=== PATIENT | male | born 1955 | race Caucasian/White ===

== ENCOUNTER 2016-04-19 11:01 | Outpatient (CLI) | payer MEDICARE, OTHER ==
[~2016-04-19] VITALS: Ht 182.9 cm; Wt 150.0 kg
--- NOTE | ~2016-04-19 | HEMODYNAMI ---
PATIENT:POPPY ARORA MEDICAL RECORD: [id number] : 57 LOCATION:D.CAT ADMISSION DATE: 04/19/16 Generatedon:04/19/201614:12 Patient name: POPPY ARORA Patient #: [id number] SSN: : 1955 Date of study: 04/19/2016 Page: Of Hemodynamic Procedure Report Patient Data Patient Demographics Procedure consent was obtained First Name: POPPY Gender: Male Last Name: ULYSSES : 1955 [facility] Initial: L Age: 60 year(s) Patient #: [id number] Race: Unknown Additional ID: [id number] Contact details [address]: [address] [place] [address] State: [place] City: [facility] Zip code: [address] Past Medical History Allergies Allergen Reaction Date Comments Reported Other allergy 04/19/2016 lisinopril Admission Admission Data Admission Date: 04/19/2016 Admission Time: 11:01 Admit Source: Other Lab Results Lab Result Date: 04/19/2016 Lab Result Time: 12:05 Biochemistry Name Units Result Min Max Creatinine mg/dl 1 --(--*-)-- 0.6 1.3 CBC Name Units Result Min Max Hematocrit % 41.2 -*(----)-- 42 54 Hemoglobin g/dl 13.8 --(*---)-- 13.5 17.5 Procedure Procedure Types Cath Procedure Diagnostic Procedure LHC Right Heart RHC and LHC w/Coronaries PCI Procedure Coronary Stent Initial Miscellaneous Procedures Moderate Sedation up to 45 minutes Procedure Description Procedure Date Procedure Date: 04/19/2016 Procedure Start Time: 13:23 Procedure End Time: 14:10 Procedure Staff Name Function Tony Palafox MD Performing Physician Sid Millan RT Scrub Pablito Marrufo RN Nurse Adal Sawant RT Appointment Setter Josué Gross RT Monitor Procedure Data Cath Procedure Fluoroscopy Diagnostic fluoroscopy Total fluoroscopy Time: time: 13.7 min 13.7 min Diagnostic fluoroscopy Total fluoroscopy dose: dose: 3217 mGy 3217 mGy Contrast Material Contrast Material Type Amount (ml) Isovue 300 217 Entry Location Entry Primary Successful Side Size Upsize Upsize Entry Closure Da Silva ccessful Closure Location (Fr) 1 (Fr) 2 (Fr) Remarks Device Remarks Femoral Right 5 Fr 6 Fr Exoseal artery Short Femoral Right 7 Fr Manual vein Short Compression Estimated blood loss: 10 ml Diagnostic catheters Device Type Used For End Catheter Placement Cordis 5Fr JL 4.0 Coronary Catheter (MP) Angiography Cordis 5Fr 3DRC Catheter Coronary (MP) Angiography Cordis 5Fr Pigtail LV Angiography Catheter (MP) Hairdressrciences 7Fr Right heart cath [place] Thermodilution reina Procedure Complications No complications Procedure Medications Medication Administration Route Dosage Oxygen NC 3 l/min Lidocaine 2% added to field 20 Heparin Flush Bag added to field 2 bags (1000units/500ml NS) 0.9% NaCl I.V. 100 ml/hr Versed I.V. 1 mg Fentanyl I.V. 50 mcg Versed I.V. 1 mg Fentanyl I.V. 50 mcg Lopressor I.V. 5 mg Versed I.V. 1 mg Fentanyl I.V. 50 mcg Versed I.V. 1 mg Fentanyl I.V. 50 mcg Heparin Bolus I.V. 6000 units Integrilin (Bolus I.V. 11.3 ml 2mg/ml) Versed I.V. 1 mg Plavix P.O. 600 mg Hemodynamics Rest HGB: 13.8 (g/dl) Heart Rate: 72 (bpm) Pressure Samples Time Site Value (mmHg) Purpose Heart Use Rate(bpm) 13:28 AO 146/85(111) Snapshot 81 13:33 LV 157/7,33 Snapshot 79 13:41 PCW 29/35(28) Snapshot 78 13:41 PA 54/31(39) Snapshot 77 13:42 RV 53/14,20 Snapshot 77 13:43 RA 21/23(20) Snapshot 77 Gradients Valve Time Site Site Mean SEP/DFP Peak To Heart Use 1 2 (mmHg) (sec/min) Peak Rate (mmHg) (bpm) Aortic 13:34 LV AO 80 Snapshots Pre Cath Intra NCS Post Cath Vital Signs Time Heart Resp SPO2 etCO2 EN7nxhr NIBP (mmHg) Rhythm Pain Sedatio n Rate (ipm) (%) (mmHg) (mmHg) Status Level (bpm) 13:07:49 83 19 97 0 0 109/82(93) NSR 0 (11) 10(A) , No pain 13:12:46 83 17 97 0 0 136/125(133) NSR 0 () 10(A) , No pain 13:17:45 81 13 95 0 0 Measuring NSR 0 (11) 10(A) , No pain 13:17:56 81 18 95 0 0 170/106(138) NSR 0 () 10(A) , No pain 13:22:16 78 18 96 0 0 175/98(139) NSR 0 () 10(A) , No pain 13:26:36 81 15 93 0 0 156/103(139) NSR 0 () 10(A) , No pain 13:30:52 78 20 95 0 0 154/95(123) NSR 0 () 10(A) , No pain 13:35:08 80 21 93 0 0 164/92(119) NSR 0 () 10(A) , No pain 13:39:26 80 20 94 0 0 153/94(119) NSR 0 () 10(A) , No pain 13:43:42 78 20 94 0 0 156/89(116) NSR 0 () 10(A) , No pain 13:47:58 79 22 94 0 0 149/91(118) NSR 0 () 10(A) , No pain 13:52:12 82 16 95 0 0 156/92(127) NSR 0 (11) 10(A) , No pain 13:56:28 81 17 94 0 0 159/96(127) NSR 0 () 10(A) , No pain 14:00:44 83 23 94 0 0 165/99(119) NSR 0 () 10(A) , No pain 14:05:02 87 18 95 0 0 167/105(132) NSR 0 () 10(A) , No pain 14:09:22 85 16 95 0 0 161/99(119) NSR 0 (11) 10(A) , No pain Medications Time Medication Route Dose Verified Delivered Reason Not es Effectiveness by by 13:04:47 Oxygen NC 3 l/min Tony Kenney used for [facility] 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 100ml/hr Tony Pablito Per physician [facility] Owen Marrufo RN, MD 13:23:05 Versed I.V. 1 mg Tony Buffie for sedation [facility] Owen Marrufo RN, MD 13:23:10 Fentanyl I.V. 50 mcg Tony Buffie for sedation [facility] Owen Marrufo RN, MD 13:26:47 Versed I.V. 1 mg Tony Buffie for sedation [facility] Owen Marrufo RN, MD 13:26:51 Fentanyl I.V. 50 mcg Tony Buffie for sedation [facility] Owen Marrufo RN, MD 13:29:37 Lopressor I.V. 5 mg Tony Palmaie Per physician [facility] Owen Marrufo RN, MD 13:32:41 Versed I.V. 1 mg Tony Buffie for sedation [facility] Owen Marrufo RN, MD 13:32:45 Fentanyl I.V. 50 mcg Tony Buffie for sedation [facility] Owen Marrufo RN, MD 13:43:54 Versed I.V. 1 mg Tony Buffie for sedation [facility] Owen Marrufo RN, MD 13:43:57 Fentanyl I.V. 50 mcg Tony Buffie for sedation [facility] Owen Marrufo RN, MD 13:47:11 Heparin Bolus I.V. 6,000 Tony Buffie for yamini ified units [facility] Owen Marrufo RN anticoagulation with dr MD mccann 13:49:22 Integrilin I.V. 11.3 ml Tony Palmaie for (Bolus 2mg/ml) [facility] Owen Marrufo RN antiplatelet therapy 13:55:51 Versed I.V. 1 mg Tony Buffie for sedation [facility] Owen Marrufo RN, MD 14:10:50 Plavix P.O. 600 [address] [facility] Owen Marrufo RN antiplatelet therapy Procedure Log Time Note 12:44:59 Informed consent obtained and on chart 12:45:24 Admit Source: Other 12:45:28 Adal Sawant RT(R) sent for patient. Start room use. 12:45:30 Time tracking: Regular hours 12:45:34 Plan of Care:Hemodynamics will remain stable., Cardiac rhythm will remain stable., Comfort level will be maintained., Respiratory function will remain adequate., Patient/ family verbilizes understanding of procedure., Procedure tolerated without complication., Recovers from procedure without complications.. 12:58:28 Patient received from Pre/Post Procedure Room to CCL 1 Alert and oriented. Tansferred to table in Supine position. 12:58:29 Warm blankets applied, and nila hugger turned on for patient comfort. 12:58:29 Correct patient and procedure confirmed by team. 12:58:30 ECG and BP/O2 sat monitors applied to patient. 13:04:47 Oxygen 3 l/min NC was given by Pablito Marrufo RN; used for procedure; 13:06:31 Vital chart was started 13:08:32 Baseline sample Acquired. 13:11:35 Rhythm: sinus rhythm 13:11:40 Full Disclosure recording started 13:12:08 H&P Date Dictated: 04/14/2016 Within 30 days and on chart., H&P Addendum completed by physician on day of procedure. (MUST COMPLETE FOR ALL OUTPATIENTS). 13:12:09 Pre-procedure instructions explained to patient. 13:12:10 Pre-op teaching completed and patient verbalized understanding. 13:12:11 Family in waiting room. 13:12:13 Patient NPO since Midnight. 13:12:23 Patient allergic to Other allergylisinopril 13:12:25 Is the patient allergic to Iodine/contrast media? No. 13:12:28 Is patient on blood thinner?No 13:12:30 Patient diabetic? Yes. 13:12:58 If diabetic: On Metformin? No 13:13:00 Previous problem with sedation/anesthesia? No ? 13:13:01 Snore? Yes 13:13:02 Sleep apnea? No 13:13:03 Deviated septum? No 13:13:04 Opens mouth fully? Yes 13:13:04 Sticks out tongue? Yes 13:13:06 Airway obstruction? No ? 13:13:08 Dentures? No ? 13:13:10 Pre procedure: right dorsailis pedis pulse 2+ Normal; easily identifiable; not easily obliterated 13:13:13 Patient pain scale 0/10 ?. 13:13:23 IV patent on arrival in left hand with 0.9% NaCl at [facility]. 13:14:08 Lab Result : Creatinine 1 mg/dl 13:14:08 Lab Result : Hemoglobin 13.8 g/dl 13:14:08 Lab Result : Hematocrit 41.2 % 13:14:12 Lab results completed and on chart. 13:17:10 Lidocaine 2% 20ml vial added to field was given by Tony Palafox MD; for local anesthetic; 13:17:15 Heparin Flush Bag (1000units/500ml NS) 2 bags added to field was given by Tony Palafox MD; used for procedure; 13:17:29 Zero performed for pressure channel P1 13:17:36 0.9% NaCl 100ml/hr I.V. was given by Pablito Marrufo RN; Per physician; 13:18:56 Right groin area was prepped with chlora-prep and draped in sterile fashion 13:18:58 Alarms reviewed by R. N. 13:18:58 Sharps counted by scrub and verified by R.N. 13:19:00 --------ALL STOP TIME OUT------ 13:19:00 Final Timeout: patient, procedure, and site verified with staff and physician. All members of the team are in agreement. 13:19:03 Right groin site verified by team. 13:19:30 Physical assessment completed. ASA score P 3 - A patient with severe systemic disease as per Tony Palafox MD. 13:19:35 Sedation plan: IV Moderate Sedation Versed, Fentanyl 13:21:20 Use device set Femoral Dx 13:21:22 Tegaderm 4 x 4 opened to sterile field. 13:21:23 Acist Hand Control opened to sterile field. 13:21:23 Acist Manifold opened to sterile field. 13:21:25 Acist Syringe opened to sterile field. 13:21:25 Bag Decanter opened to sterile field. 13:21:26 Medline Cath Pack opened to sterile field. 13:21:26 Terumo 5Fr [place] Sheath opened to sterile field. 13:21:27 St Jh 260cm J .035 wire opened to sterile field. 13:21:28 Diagnostic Infinity 5Fr Multipack catheter opened to sterile field. 13:21:43 Terumo 7Fr [place] Sheath opened to sterile field. 13:23:05 Versed 1 mg I.V. was given by Pablito Marrufo RN; for sedation; 13:23:10 Fentanyl 50 mcg I.V. was given by Pablito Marrufo RN; for sedation; 13:23:48 Procedure started. 13:23:52 Local anesthetic to right femoral artery with Lidocaine 2% by Tony Palafox MD.INITIAL ACCESS ONLY 13:26:10 A 5 Fr sheath was inserted into the Right Femoral artery 13:26:20 A 7 Fr Short sheath was inserted into the Right Femoral vein 13:26:30 A Cordis 5Fr JL 4.0 Catheter (MP) was advanced over the wire and used for Coronary Angiography. 13:26:47 Versed 1 mg I.V. was given by Pablito Marrufo RN; for sedation; 13::51 Fentanyl 50 mcg I.V. was given by Pablito Marrufo RN; for sedation; 13::48 LCA angiography performed. 13:29:37 Lopressor 5 mg I.V. was given by Pablito Marrufo RN; Per physician; 13:29:52 Catheter removed. 13:30:06 A Cordis 5Fr 3DRC Catheter (MP) was advanced over the wire and used for Coronary Angiography. 13:31:19 RCA angiography performed. 13:31:25 ACCDominant side:Left 13:32:41 Versed 1 mg I.V. was given by Pablito Marrufo RN; for sedation; 13:32:45 Fentanyl 50 mcg I.V. was given by Pablito Marrufo RN; for sedation; 13:33:02 Catheter removed. 13:33:21 A Cordis 5Fr Pigtail Catheter (MP) was advanced over the wire and used for LV Angiography. 13:34:37 LV angiography performed. 13:34:39 LV gram done using [place] 13:34:50 EF : 25 % 13:35:01 Injector settings: Ml/sec: 10, Volume: 20, 13:35:58 Catheter removed. 13:36:52 Medtronic Launcher 6Fr HS I guide catheter opened to sterile field. 13:37:12 Terumo 6Fr [place] Sheath opened to sterile field. 13:37:20 Woodson Whisper J 300cm 0.014 guide wire opened to sterile field. 13:37:21 [employer] BasixCompak Inflation Kit opened to sterile field. 13:37:36 A Inhabi 7Fr [place] Thermodilution reina was advanced over the wire and used for Right heart cath. 13:39:27 St Jh 150cm J .025 wire opened to sterile field. 13:43:54 Versed 1 mg I.V. was given by Pablito Marrufo RN; for sedation; 13:43:57 Fentanyl 50 mcg I.V. was given by Pablito Marrufo RN; for sedation; 13:44:22 Right heart pressures measured. 13:44:23 Catheter removed. 13:44:40 Sheath upsized to a 6 Fr Short. 13:44:55 6 Fr HS I guide catheter was inserted over the wire 13:46:19 Guide Catheter removed. pressure damping. 13:46:31 Medtronic Launcher 6Fr HS I SH guide catheter opened to sterile field. 13:47:11 Heparin Bolus 6,000 units I.V. was given by Pablito Marrufo RN; for anticoagulation; verified with dr mccann 13:47:14 6 Fr HS I SH guide catheter was inserted over the wire 13:47:40 whisper wire advanced. 13:49:06 Wire advanced across lesion. 13:49:22 Integrilin (Bolus 2mg/ml) 11.3 ml I.V. was given by Pablito Marrufo RN; for antiplatelet therapy; 13:51:57 Inflation number: 1 A [place] Heverest.ru [place] 3.0 X 20 balloon was prepped and advanced across the Dist RCA, then inflated to 10 SHAILA for 0:30 (min:sec). 13:53:38 multiple inflations made at 10 atms. 13:55:27 Balloon removed over the wire. 13:55:51 Versed 1 mg I.V. was given by Pablito Marrufo RN; for sedation; 13:57:05 Inflation Number: 2 A Medtronic Resolute 3.0 X 26 stent was prepped and advanced across the Dist RCA. The stent was deployed at 12 SHAILA for 0:45 (min:sec). 13:57:53 ACC PCI Site: dRCA has 80% stenosis. 13:57:56 ACC Pre-intervention RICARDO Flow is 3. 13:57:58 ACC Post-intervention RICARDO Flow is 3. 13:58:08 Stent catheter was removed intact over wire. 14:02:09 Inflation Number: 3 A Medtronic Resolute 3.0 X 18 stent was prepped and advanced across the Dist RCA. The stent was deployed at 12 SHAILA for 0:45 (min:sec). 14:03:22 Inflation number: 4 The stent balloon was then re-inflated across the Dist RCA to 12 SHAILA for 0:45 (min:sec). 14:05:26 Inflation number: 5 The stent balloon was then re-inflated across the Dist RCA to 12 SHAILA for 0:45 (min:sec). 14:05:28 Stent catheter was removed intact over wire. 14:05:29 Wire removed. 14:05:30 Guide catheter removed. 14:05:37 Cordis 6Fr Exoseal opened to sterile field. 14:06:04 Sheath removed intact; hemostasis achieved with Exoseal to the Right Femoral artery. 14:06:09 Sheath removed intact; hemostasis achieved with Manual Compression to the Right Femoral vein. 14:06:11 Procedure ended.(Physican Out) 14:06:37 Fluoroscopy time 13.70 minutes. 14:06:42 Fluoroscopy dose: 3217 mGy 14:06:42 Flurop Dose total: 3217 14:06:48 Contrast amount:Isovue 300 217ml. 14:06:49 Sharps counted by scrub and verified by R.N. 14:06:51 Insertion/operative site no bleeding no hematoma. 14:06:58 Post-op/insertion site Right Femoral artery dressed using a 4 x 4 and Tegaderm. 14:07:03 Post-op/insertion site Right Femoral vein dressed using a 4 x 4 and Tegaderm. 14:07:08 Post right femoral artery:stable, soft, clean and dry 14:07:33 Post right femoral vein:stable, soft, clean and dry 14:07:40 Post Procedure Pulses reassessed and unchanged 14:07:43 Post-procedure physical assessment completed. ASA score P 2 - A patient with mild systemic disease as per Tony Palafox MD. 14:07:45 Post procedure rhythm: unchanged. 14:07:49 Estimated blood loss: 10 ml 14:07:51 Post procedure instruction explained to patient.Patient verbalizes understanding. 14:07:51 Patient needs reinforcement of post procedure teaching. 14:08:05 Procedure type changed to Cath procedure, Diagnostic procedure, LHC, Right Heart, RHC and LHC w/Coronaries, PCI procedure, Coronary Stent Initial, Miscellaneous Procedures, Moderate Sedation up to 45 minutes 14:10:10 Procedure and supply charges have been captured, reviewed, submitted and are correct. 14:10:12 Procedure Complication : No complications 14:10:15 Vital chart was stopped 14:10:15 See physician's report for complete and final results. 14:10:17 Report given to Pre/Post Procedure Room. 14:10:19 Patient transfered to Pre/Post Procedure Room with Stretcher. 14:10:22 Procedure ended. 14:10:22 Full Disclosure recording stopped 14:10:42 ACC-PCI Only Patient was given prescriptions, or instructed by Tony Palafox MD to start/continue the following medications upon discharge: Plavix 14:10:50 Plavix 600 mg P.O. was given by Pablito Marrufo RN; for antiplatelet therapy; 14:12:08 End room use (Document Last) Intervention Summary Intervention Notes Time ActionType Lesion and Equipment Action# Pressure Duration Attributes Used 13:51:57 Inflate Dist RCA [place] 1 10 00:30 balloon Sci [place] 3.0 X 20 balloon 13:57:05 Place stent Dist RCA Medtronic 2 12 00:45 Resolute 3.0 X 26 stent 14:02:09 Place stent Dist RCA Medtronic 3 12 00:45 Resolute 3.0 X 18 stent 14:03:22 Reinflate Dist RCA Medtronic 4 12 00:45 stent Resolute balloon 3.0 X 18 stent 14:05:26 Reinflate Dist RCA Medtronic 5 12 00:45 stent Resolute balloon 3.0 X 18 stent Device Usage Item Name Manufacture Quantity Catalog Number Hospital Part Current M inimal Lot# / Charge Number Stock Stock Serial# Code Tegaderm 4 x 4 3M 1 [id number] 056482 625435 5 Acist Hand Acist 1 54017 582938 480717 379142 5 Control Medical Systems Inc Acist Manifold Acist 1 88804 201779 388403 574155 5 Medical Systems Inc Acist Syringe Acist 1 36148 672242 106435 643601 2 0 Medical Systems Inc Bag Decanter Microtek 1 2002S 336736 39772 756748 5 Medical Inc. Medline Cath Cardinal 1 [id number] 037471 32005 068812 5 Pack Health Terumo 5Fr Terumo 1 [id number] 982244 101454 911548 [address] Jh [address] Jh 1 231919 251508 405533 742429 3 0 J .035 wire Diagnostic Cardinal 1 [id number] 215241 63219 657114 3 0 Infinity 5Fr Health Multipack catheter Terumo 7Fr Terumo 1 END264 163954 337907 242576 5 [place] Sheath Cordis 5Fr JL Cardinal 1 788899 5 4.0 Catheter Health (MP) Cordis 5Fr Cardinal 1 547063 5 3DRC Catheter Health (MP) Cordis 5Fr Cardinal 1 275724 5 Pigtail Health Catheter (MP) Medtronic Medtronic 1 [id number] 235190 06355 895076 1 Launcher 6Fr HS I guide catheter Terumo 6Fr Terumo 1 [id number] 960035 755433 152047 4 0 [place] Sheath Woodson Whisper Woodson 1 [id number] 155266 924380 526136 5 J 300cm 0.014 Vascular guide wire Merit Merit 1 [id number] 047647 954870 816961 1 5 PackLate.com Medical Inflation Kit Herrera Herrera 1 [id number] 459427 28924 772297 3 LifesciRoundbox Lifesciences 7Fr [place] Thermodilution reina St Jh 150cm St Jh 1 708579 541333 696026 464619 2 J .025 wire Medtronic Medtronic 1 [id number] 605292 81310 625541 1 Launcher 6Fr HS I SH guide catheter [place] Sci [place] 1 [id number] 099815 670567 058652 1 [id number] [place] 3.0 X Scientific 20 balloon Medtronic Medtronic 1 [id number] 767522 276358 8 [id number] Resolute 3.0 X 26 stent Medtronic Medtronic 1 [id number] 219458 744448 7 [id number] Resolute 3.0 X 18 stent Cordis 6Fr Cardinal 1 [id number] 257175 704168 481256 1 0 [facility] happin! Signature Audit Wallace Stage Time Signature Unsigned Intra-Procedure 04/19/2016 Josué Gross 2:12:50 PM RT(R) Signatures Monitor : Josué Gross RT Signature : Date : Time : [place] [address] [place] [address]
[2016-04-19] MEDS ORDERED: FLOMAX0.4 MG PO (12:10)
[2016-04-19 12:11] LABS: BASOPHILS 0.4 % (0.0-2.0); EOSINOPHILS 5.8 % (0-7); HEMATOCRIT 41.2 % (42.0-54.0); HEMOGLOBIN 13.8 g/dL (13.5-17.5); IMMATURE GRANULOCYTES 0.1 % (0-5); LYMPHOCYTES 21.7 % (15-50); MCH 28.7 pg (26.0-34.0); MCHC 33.5 g/dL (31.0-37.0); MCV 85.7 fL (80.0-100.0); MEAN PLATELET VOLUME 9.2 fL (7.4-10.4); MONOCYTES 11.3 % (2-11); NEUTROPHILS 60.7 % (40-80); PLATELET COUNT 225 10x3/uL (130-400); RBC 4.81 10x6/uL (4.20-6.10); WBC 7.6 10x3/uL (4.8-10.8)
[2016-04-19] MEDS ORDERED: ATIVAN2 MG PO (12:11)
[2016-04-19] MEDS ORDERED: NORVASC10 MG PO (12:12)
[2016-04-19] MEDS ORDERED: ELAVIL25 MG PO (12:12)
[2016-04-19] MEDS ORDERED: COZAAR100 MG PO (12:13)
[2016-04-19] MEDS ORDERED: COREG25 MG PO (12:14)
[2016-04-19] MEDS ORDERED: CYMBALTA60 MG PO (12:14)
[2016-04-19] MEDS ORDERED: IBUPROFEN800 MG PO (12:15)
[2016-04-19] MEDS ORDERED: TRULICITY1.5 MG/0.5 SC (12:16)
[2016-04-19] MEDS ORDERED: NOVOLOG100 U/M1 SC (12:17)
[2016-04-19] MEDS ORDERED: TOUJEO SOL300 UNIT/1 SC (12:18)
[2016-04-19 12:27] VITALS: BP 158/84; Ht 182.9 cm; Wt 150.0 kg
[2016-04-19 12:28] LABS: CALC OSMOLALITY 275 mosm/kg (275-300); CARBON DIOXIDE 29.2 mmol/L (21.0-32.0); CHLORIDE - SERUM 100 mmol/L (98-107); GLUCOSE 124 mg/dL (74-106); POTASSIUM - SERUM 4.1 mmol/L (3.5-5.1); SODIUM 137 mmol/L (136-145); UREA NITROGEN 16 mg/dL (7-18); eGFR NON AFRICAN AMERICAN 81 mL/min (90-120)
[2016-04-19] MEDS ORDERED: PLAVIX75 MG PO (14:46)
[2016-04-19] MEDS ORDERED: ALDACTONE25 MG PO (14:46)
--- NOTE | 2016-04-19 15:49 | NUR ---
1445-RIGHT GROIN- CDI, SOFT TO TOUCH
--- NOTE | 2016-04-19 15:51 | NUR ---
1515-RIGHT GROIN- NO CHANGES, AT SIDE, REPOSITION LEFT LEG FOR COMFORT.
--- NOTE | 2016-04-26 13:35 | OP ---
PATIENT NAME: POPPY ARORA MEDICAL RECORD: [id number] :57 LOCATION:D.CAT ADMISSION DATE: SURGEON: HILTON PERALTA MD DATE OF OPERATION: 04/19/2016 PROCEDURE: Left heart catheterization as well as right heart catheterization, right femoral artery and vein approach respectively. CATHETERS: A 5-Comoran sheath, 5/4 left and right Ruth, 6-[place]oran sheath on the right heart catheterization as well as a Commerce-Fabio. The procedure was tolerated and proceeded with PTCA of the right coronary. FINDINGS: RIGHT HEART CATHETERIZATION: Pulmonary capillary wedge pressure 31 mmHg. Pulmonary artery pressure is 54/31. RV pressure 53/14, right atrial pressure 18. LEFT HEART CATHETERIZATION: Left ventriculography in the 30-degree PHOENIX view shows severe global hypokinesis, more marked apical hypokinesis, EF reduced 20% to 25%. CORONARY ANATOMY: Left main: Left main is free of disease. LAD: Totally occluded in its distal third and is seen filling via right to left collaterals. CIRCUMFLEX: Codominant system free of disease. RIGHT CORONARY ARTERY: Has diffuse diabetic disease and has mid portion and fills the LAD via right to left collaterals. PLAN: Intervention of the right momentarily. A 5-Comoran sheath changed for a 6-[place]or[place] sheath. A hockey stick guide catheter with side holes provided excellent guide catheter support followed by a 300 cm [place] XT wire placed to this portion of the right coronary. Next, pre-deployment of the balloon was a 3.0 x 20 mm [place] balloon. Stents were placed in the following fashion: Distally, a 26-mm x 3.0 Resolute drug-eluting stent was placed. More proximally, an 18 mm Resolute drug-eluting stent was placed. The final angiography shows excellent resolution of diffuse 80% to 90% stenosis, no significant residual. Good plumping of this vasculature. RICARDO flow was 3 throughout the procedure. Plavix was loaded in the lab. Sheath was closed with ExoSeal device. TRANSINT:[id number] Voice Confirmation ID: [id number] DOCUMENT ID: [id number] OPERATIVE REPORT [id number] POPPY ARORA HILTON PERALTA MD at 1337 CC: [id number] DICTATION DATE: 04/19/16 1414 PAINT PREP TECHNICIAN: 04/19/161922 DEP CLI 04/19/16 [facility] [address] [place] [address]
== END 2016-04-19 18:30 | disposition home or self-care (01) ==
LOC: D.CATH 11:01
PROVIDERS: Internal Medicine Interventional Cardiology
DX: I25.119 Atherosclerotic heart disease of native coronary artery with unspecified angina pectoris (principal); E11.9 Type 2 diabetes mellitus without complications
CPT/HCPCS: 93460; C9600

== ENCOUNTER 2017-05-20 10:26 | Emergency (ER) | payer MEDICARE, OTHER ==
[2016-04-19 12:27] VITALS: BMI 44.8
[~2017-05-20 10:26] MED LIST: ALDACTONE25 MG PO; ATIVAN2 MG PO; COREG25 MG PO; COZAAR100 MG PO; CYMBALTA60 MG PO; ELAVIL25 MG PO; FLOMAX0.4 MG PO; IBUPROFEN800 MG PO; NORVASC10 MG PO; NOVOLOG100 U/M1 SC; PLAVIX75 MG PO; TOUJEO SOL300 UNIT/1 SC; TRULICITY1.5 MG/0.5 SC
== END 2017-05-20 15:37 | disposition home or self-care (01) ==
LOC: D.ER 10:26
DX: K59.00 Constipation, unspecified (principal); K56.41 Fecal impaction; E11.9 Type 2 diabetes mellitus without complications; Z79.4 Long term (current) use of insulin; I10 Essential (primary) hypertension

== ENCOUNTER 2018-05-05 12:28 | Observation (INO) | payer MEDICARE, OTHER ==
[2018-05-05] VITALS (8 sets, daily range): BP systolic 104–136; BP diastolic 53–63; BMI 41.7
[~2018-05-05] VITALS: Ht 182.9 cm; Wt 137.7 kg
--- NOTE | ~2018-05-05 | CN ---
PATIENT NAME:POPPY ARORA MEDICAL RECORD: [id number] : 57 LOCATION:[facility] D.2111 ADMIT DATE: 05/05/18 ACCOUNT: [id number] CONSULTING PHYSICIAN: HILTON PERALTA MD REFERRING PHYSICIAN: MARISA BANEGAS MD DATE OF CONSULTATION: 05/06/2018 HISTORY OF PRESENT ILLNESS: A 62-year-old gentleman with known history of coronary artery disease, status post intervention of the right coronary artery. He has a history of cardiomyopathy, improved markedly post-revascularization. He was admitted with chest tightness, pressure with exertion over the last 3-4 weeks, has been having some visual changes and dizziness. This questionable amaurosis type symptomatology, does have severe peripheral vascular disease. We are asked to see him concerning his cardiovascular status. PAST MEDICAL HISTORY: Includes: 1. History of hypertension. 2. Diabetes mellitus. 3. Peripheral vascular disease. 4. Coronary artery disease, status post intervention. ALLERGIES: LISINOPRIL CAUSES AN ALLISON COUGH. MEDICATIONS: Typically include Plavix 75 every day, carvedilol 25 b.i.d., losartan 100 every day, spironolactone 25 every day, amitriptyline 25 q.h.s., aspirin 81 every day, insulin per scale. SOCIAL HISTORY: Nonsmoker, nondrinker. Does try to exercise on a regular basis, although surgery to non-healing ulcers, has not been able do this recently. REVIEW OF SYSTEMS: The patient reports easy bruising but reports no swollen glands. The patient reports no fever, no night sweats, no significant weight gain, no significant weight loss. No significant exercise tolerance. The patient reports no dry eyes, no irritation, no vision change. Patient reports no difficulty hearing and no ear pain. Patient reports no frequent nose bleeds or nose and sinus problems. Patient reports on arm pain on exertion. No shortness of breath while lying down. No history of heart murmur. Patient reports no cough, no wheezing or coughing up blood. Patient reports no abdominal pain, no vomiting. Normal appetite. No diarrhea and not vomiting blood. No nausea and no constipation. Patient reports no incontinence. No difficulty urinating. No hematuria. No increased frequency. Patient reports no muscle aches. No weakness, no arthralgias, no back pain. No swelling of the extremities. Patient reports no abnormal mole, no jaundice, no rashes. Reports no loss of consciousness. No weakness and no numbness. No seizures, dizziness, or headaches. The patient reports no depression, no sleep disturbance, feeling safe in a relationship and no alcohol abuse. Patient reports on fatigue. Reports no runny nose or sinus pressure. No itching, no hives, and no frequent sneezing. PHYSICAL EXAMINATION: GENERAL: Pleasant gentleman in no acute distress. VITAL SIGNS: Blood pressure 138/51, pulse 65 and regular. HEENT: Normocephalic, atraumatic. NECK: Questionable right carotid bruit. CONSULT REPORT [id number] POPPY ARORA HEART: Regular, II/ systolic ejection murmur. LUNGS: Good air excursion. ABDOMEN: Soft, nontender. EXTREMITIES: Pulses 2+. No edema. NEUROLOGIC: Grossly intact. DIAGNOSTIC DATA: ECG shows nonspecific ST-T changes. IMPRESSION: Progressive angina, TIA type symptomatology with bruit noted. PLAN: Diagnostic angiography, 4-vessel in the same setting, intervention based on the above. TRANSINT:[id number] Voice Confirmation ID: [id number] DOCUMENT ID: [id number] HILTON PERALTA MD CC: [id number] DICTATION DATE: 05/06/18 1107 MAKE UP ARTIST: 05/06/18 1223 ADM IN [facility] [address] [place] [address]
--- NOTE | ~2018-05-05 | OP ---
PATIENT NAME: POPPY ARORA MEDICAL RECORD: [id number] :57 LOCATION:D.M2 D.2111 ADMISSION DATE:05/05/18 SURGEON: HILTON PERALTA MD DATE OF OPERATION: 05/06/2018 PROCEDURE: Cath plus PTCA plus 4-vessel arteriography, right femoral artery approach. CATHETERS: A 5-Singaporean sheath, 5/4 left and right Ruth, 5/4 pig. The procedure was well tolerated. The patient returned to smith, sheath removed and ExoSeal device placed. FINDINGS: Left ventriculography in 30-degree [place] view shows mild anterior apical hypokinesis, LV function probably lower limits of normal at 50%. CORONARY ANATOMY: LEFT MAIN: Left main is free of disease. LAD: Totally occluded in its distal third. This is an old occlusion, seen filling via both left to left and left to right collaterals. CIRCUMFLEX: Codominant system. Circumflex is free of disease. RIGHT CORONARY ARTERY: Proximal to previously placed stent shows diffuse 80% stenosis. PLAN: Intervention momentarily. DESCRIPTION OF PROCEDURE: A 5-Singaporean sheath was exchanged for a 6-Singaporean sheath. A hockey stick two-guide catheter with side holes provided good guide catheter support followed by 300 cm Whisper wire, which was placed across the tightly occluded right coronary artery in this portion of vessel. Stent deployed was a 3.0 x 24 mm Smoot drug-eluting stent up to 14 atmospheres for 45 seconds. Final angiography showed excellent resolution of diffuse 80% stenosis, no significant residual. FOUR-VESSEL ARTERIOGRAPHY: Right common carotid was selectively engaged. Right common carotid shows some mild disease, but no flow obstructive stenosis. Nothing greater than 10%. Right internal carotid is a smooth-walled vessel, free of disease. Right external carotid is a smooth-walled vessel, free of disease. Left carotid system: Left common carotid was selectively engaged. This shows some calcium deposition and luminal wall disease, but nothing flow obstructive. Left internal carotid is smooth-walled, free of disease. Left external carotid is smooth-walled vessel, free of disease. IMPRESSION: No significant carotid artery disease, status post PTCA stenting of the right coronary. TRANSINT:[id number] Voice Confirmation ID: [id number] DOCUMENT ID: [id number] OPERATIVE REPORT [id number] POPPY ARORA HILTON PERALTA MD CC: [id number] DICTATION DATE: 05/06/18 1104 EXECUTIVE DIRECTOR OF MARKETING: 05/06/18 1213 ADM IN [facility] [address] [place] [address]
--- NOTE | ~2018-05-05 | HEMODYNAMI ---
PATIENT:POPPY ARORA MEDICAL RECORD: [id number] : 57 LOCATION:[facility] D.2111 ADMISSION DATE: 05/05/18 Generatedon:05/06/201811:00 Patient name: POPPY ARORA Patient #: [id number] SSN: : 1955 Date of study: 05/06/2018 Page: Of Hemodynamic Procedure Report Patient Data Patient Demographics Procedure consent was obtained First Name: POPPY Gender: Male Last Name: ULYSSES : 1955 [facility] Initial: L Age: 62 year(s) Patient #: [id number] Race: Unknown Additional ID: [id number] Contact details Address: [address] [place] [address] State: [place] City: [facility] Zip code: [address] Past Medical History Allergies Allergen Reaction Date Comments Reported Other allergy 04/19/2016 lisinopril Other allergy 05/06/2018 Lisinopril Admission Admission Data Admission Date: 05/05/2018 Admission Time: 16:04 Room #: D.2111 Lab Results Lab Result Date: 05/06/2018 Lab Result Time: 0:00 Biochemistry Name Units Result Min Max BUN mg/dl 47 --(----)-* 7 18 Creatinine mg/dl 1.4 --(----)*- 0.6 1.3 CBC Name Units Result Min Max Hemoglobin g/dl 11.4 *-(----)-- 13.5 17.5 Procedure Procedure Types Cath Procedure Diagnostic Procedure [facility] w/Coronaries PCI Procedure Coronary Stent Coronary Stent Initial Procedure Description Procedure Date Procedure Date: 05/06/2018 Procedure Start Time: 10:33 Procedure End Time: 10:56 Procedure Staff Name Function Tony Emery MD Performing Physician Marcia Castaneda RT Monitor Pablo Cagle RN Nurse Inna Lopez RT Scrub Duran Kumar RN Plate Embosser Procedure Data Cath Procedure Entry Location Entry Primary Successful Side Size Upsize Upsize Entry Closure Succes sful Closure Location (Fr) 1 (Fr) 2 (Fr) Remarks Device Remarks Femoral Right 5 Fr 6 Fr Exoseal artery Short Estimated blood loss: 10 ml Diagnostic catheters Device Type Used For End Catheter Placement MULTIPACK JL 4.0 5Fr Procedure catheter MULTIPACK 3DRC 5Fr Procedure catheter MULTIPACK Pigtail 5 Fr Ventriculography catheter Procedure Complications No complications Procedure Medications Medication Administration Route Dosage 0.9% NaCl I.V. 100 ml/hr Oxygen etCO2 Nasal cannula 2 l/min Heparin Flush Bag added to field 2 bags (1000units/500ml NS) Lidocaine 2% added to field 20 Versed I.V. 2 mg Fentanyl I.V. Versed I.V. 2 mg Heparin Bolus I.V. 5000 units Hemodynamics Rest HGB: 11.4 (g/dl) Heart Rate: 69 (bpm) Pressure Samples Time Site Value (mmHg) Purpose Heart Use Rate(bpm) 10:41 LV 128/17,19 Snapshot 78 10:42 AO 134/73(100) Pullback 71 10:42 LV 135/18,25 Pullback 71 Gradients Valve Time Site 1 Site 2 Mean SEP/DFP Peak To Heart Use (mmHg) (sec/min) Peak Rate (mmHg) (bpm) Aortic 10:42 LV AO 2 10 1 71 135/18,25 134/73(100) Calculations Valve P-P Mean Valve Index Valve Source Name Gradient Area Flow (cm2) Aortic 1 2 1 2 Snapshots Pre Cath Intra NCS Post Cath Vital Signs Time Heart Resp SPO2 etCO2 NIBP (mmHg) Rhythm Pain Sedation Rate (ipm) (%) (mmHg) Status Level (bpm) 10:10:05 68 14 100 0 143/82(123) NSR 0 (11) 10(A) , No pain 10:14:23 68 18 100 0 142/81(128) NSR 0 (11) 10(A) , No pain 10:18:41 75 18 99 0 140/79(120) NSR 0 (11) 10(A) , No pain 10:22:59 80 22 100 0 152/80(134) NSR 0 (11) 10(A) , No pain 10:27:17 73 11 100 0 140/77(123) NSR 0 (11) 10(A) , No pain 10:31:33 82 18 100 0 141/81(108) NSR 0 (11) 10(A) , No pain 10:35:53 77 19 97 0 128/76(102) NSR 0 (11) 10(A) , No pain 10:40:07 78 18 95 0 137/79(100) NSR 0 (11) 10(A) , No pain 10:44:19 75 18 98 0 123/81(101) NSR 0 (11) 10(A) , No pain 10:48:33 76 18 98 0 113/71(92) NSR 0 (11) 10(A) , No pain 10:52:41 80 15 99 0 127/77(107) NSR 0 (11) 10(A) , No pain Medications Time Medication Route Dose Verified Delivered Reason Notes Effectiveness by by 10:14:18 0.9% NaCl I.V. 100 Pablo Pablo Per physician ml/hr Tsering Cagle RN RN 10:14:32 Oxygen etCO2 2 Pablo Pablo for low 02 sats Nasal l/min Tsering Cagle cannula RN RN 10:14:46 Heparin Flush added 2 Pablo Pablo used for Bag to bags Tsering Cagle procedure (1000units/500ml field PRIETO RN NS) 10:14:59 Lidocaine 2% added 20ml Pablo Pablo for local to vial Tsering Cagle anesthetic field PRIETO RN 10:34:48 Versed I.V. 2 mg Pablo Pablo for sedation Tsering Cagle RN RN 10:34:57 Fentanyl I.V. Pablo Pablo for sedation Tsering Cagle RN RN 10:36:34 Versed I.V. 2 mg Pablo Pablo for sedation Tsering Cagle RN RN 10:45:42 Heparin Bolus I.V. 5000 Pablo Pablo for units Tsering Cagle anticoagulation RN delivery table operator Log Time Note 9:50:01 Duran Kumar RN sent for patient. Start room use. 9:59:02 Time tracking: Regular hours (M-F 7:00 - 5:00) 9:59:06 Plan of Care:Hemodynamics will remain stable., Cardiac rhythm will remain stable., Comfort level will be maintained., Respiratory function will remain adequate., Patient/ family verbilizes understanding of procedure., Procedure tolerated without complication., Recovers from procedure without complications.. 10:08:48 Patient received from Med II to [facility] 2 Alert and oriented. Tansferred to table in Supine position. 10:08:49 Warm blankets applied, and nila hugger turned on for patient comfort. 10:08:50 Correct patient and procedure confirmed by team. 10:08:51 Signed procedure consent form obtained from patient. 10:08:52 ECG and BP/O2 sat monitors applied to patient. 10:08:53 Vital chart was started 10:12:40 Baseline sample Acquired. 10:12:50 Rhythm: sinus rhythm 10:12:51 Full Disclosure recording started 10:13:11 H&P Date Dictated: 05/05/2018 Within 30 days and on chart.. 10:13:12 Pre-procedure instructions explained to patient. 10:13:20 Family in waiting room. 10:13:23 Patient NPO since Midnight. 10:13:37 Patient allergic to Other allergyLisinopril 10:13:40 Is the patient allergic to Iodine/contrast media? No. 10:14:18 0.9% NaCl 100 ml/hr I.V. was administered by Pablo Cagle RN; Per physician; 10:14:21 Was the patient premedicated? Yes 10:14:23 Is patient on blood thinner?Yes 10:14:26 ACC The patient was administered the following blood thiners within the last 24 hours: ACCPlavix 10:14:28 Patient diabetic? Yes. 10:14:30 If diabetic: On Metformin? No 10:14:32 Oxygen 2 l/min etCO2 Nasal cannula was administered by Pablo Cagle RN; for low 02 sats; 10:14:34 Snore? Yes 10:14:36 Sleep apnea? No 10:14:46 Heparin Flush Bag (1000units/500ml NS) 2 bags added to field was administered by Pablo Cagle RN; used for procedure; 10:14:50 Pre procedure: right dorsailis pedis pulse 2+ Normal; easily identifiable; not easily obliterated 10:14:56 Patient pain scale 0/10 ?. 10:14:59 Lidocaine 2% 20ml vial added to field was administered by Pablo Cagle RN; for local anesthetic; 10:15:02 IV patent on arrival in left forearm with 0.9% NaCl at [facility]. 10:15:06 Lab results completed and on chart. 10:16:26 Lab Result : Creatinine 1.4 mg/dl 10:16: Lab Result : BUN 47 mg/dl 10:16: Lab Result : Hemoglobin 11.4 g/dl 10:16:32 Right groin area was prepped with chlora-prep and draped in sterile fashion 10:16:33 Alarms reviewed by R. N. 10:16:33 Sharps counted by scrub and verified by R.N. 10:33:04 Physician arrived 10:33:04 --------ALL STOP TIME OUT------ 10:33:05 Final Timeout: patient, procedure, and site verified with staff and physician. All members of the team are in agreement. 10:33:08 Right groin site verified by team. 10:33:13 Fire Safety Assessment: A--An alcohol-based skin anteseptic being used preoperatively., C--Open oxygen or nitrous oxide is being used., D--An ESU, laser, or fiber-optic light is being used. 10:33:17 Physical assessment completed. ASA score P 2 - A patient with mild systemic disease as per Tony Emery MD. 10:33:21 Sedation plan: IV Moderate Sedation Medication:Versed, Fentanyl 10:33:26 Use device set Femoral Dx 10:33:27 ACIST Syringe (98028) opened to sterile field. 10:33:28 Bag Decanter (2002S) opened to sterile field. 10:33:28 Medline Cath Pack ([id number]) opened to sterile field. 10:33:29 DIAGNOSTIC WIRE .035 260cm J wire (865130) opened to sterile field. 10:33:30 ACIST Hand Control (67443) opened to sterile field. 10:33:30 ACIST Manifold (19942) opened to sterile field. 10:33:31 DIAGNOSTIC Multipack 5Fr catheter set ([id number]) opened to sterile field. 10:33:32 Tegaderm 4 x 4 (1626W) opened to sterile field. 10:33:34 SHEATH 5FR [place] (LJA464) opened to sterile field. 10:33:38 Procedure started. 10:33:59 Local anesthetic to right femoral artery with Lidocaine 2% by Tony Emery MD.INITIAL ACCESS ONLY 10:34:48 Versed 2 mg I.V. was administered by Pablo Lorigan RN; for sedation; 10:34:57 Fentanyl I.V. was administered by Pablo Cagle RN; for sedation; 10:35:50 A 5 Fr sheath was inserted into the Right Femoral artery 10:36:07 A MULTIPACK JL 4.0 5Fr catheter was advanced over the wire and used for Procedure. 10:36:09 LCA angiography performed. 10:36:15 Catheter removed. 10:36:34 Versed 2 mg I.V. was administered by Pablo Cagle RN; for sedation; 10:36:38 A MULTIPACK 3DRC 5Fr catheter was advanced over the wire and used for Procedure. 10:36:50 Right carotid angiography performed. 10:37:47 Left carotid angiography performed. 10:38:07 RCA angiography performed. 10:40:54 Catheter removed. 10:41:05 A MULTIPACK Pigtail 5 Fr catheter was advanced over the wire and used for Ventriculography. 10:41:22 LV gram done using [place] 10:42:15 EF : 45 % 10:42:19 Catheter removed. 10:42:52 WHISPER 300cm guide wire ([id number]) opened to sterile field. 10:42:53 SHEATH 6FR [place] (LLO698) opened to sterile field. 10:42:54 INFLATOR Merit BasixCompak (ZX0151) opened to sterile field. 10:42:58 Proceeding to intervention. 10:43:06 Sheath upsized to a 6 Fr Short. 10:43:51 GUIDE 6FR HS I SH catheter ([id number]) opened to sterile field. 10:44:03 6 Fr HS1SH guide catheter was inserted over the wire 10:45:42 Heparin Bolus 5000 units I.V. was administered by Pablo Cagle RN; for anticoagulation; 10:47:29 GUIDE 6FR HS II SH catheter ([id number]) opened to sterile field. 10:47:41 6 Fr HS2SH guide catheter was inserted over the wire 10:47:53 Whisper wire advanced. 10:50:45 Place stent Inflation Number: 1 A BLANE OTW 3.0 x 26 stent ([id number]) was prepped and advanced across the Dist RCA. The stent was deployed at 14 SHAILA for 0:23 (min:sec). 10:51:27 Inflation number: 2 The stent balloon was then re-inflated across the Dist RCA to 12 SHAILA for 0:32 (min:sec). 10:52:38 Inflation number: 3 The stent balloon was then re-inflated across the Dist RCA to 12 SHAILA for 0:23 (min:sec). 10:53:18 Stent catheter was removed intact over wire. 10:53:19 Wire removed. 10:53:20 Guide catheter removed. 10:53:28 EXOSEAL 6Fr (EX600) opened to sterile field. 10:53:56 Sheath removed intact; hemostasis achieved with Exoseal to the Right Femoral artery. 10:53:59 Insertion/operative site no bleeding no hematoma. 10:54:04 Post right femoral artery:stable 10:54:10 Post Procedure Pulses reassessed and unchanged 10:54:16 Post-procedure physical assessment completed. ASA score P 2 - A patient with mild systemic disease as per Tony Emery MD. 10:54:20 Post procedure rhythm: sinus rhythm 10:54:23 Estimated blood loss: 10 ml 10:54:26 Post procedure instruction explained to patient.Patient verbalizes understanding. 10:54:41 Patient needs reinforcement of post procedure teaching. 10:55:24 Procedure type changed to Cath procedure, Diagnostic procedure, LHC, LHC w/Coronaries, PCI procedure, Coronary Stent, Coronary Stent Initial 10:55:25 Procedure and supply charges have been captured, reviewed, submitted and are correct. 10:55:57 Procedure Complication : No complications 10:56:00 Vital chart was stopped 10:56:06 See physician's report for complete and final results. 10:56:09 Report given to Pre/Post Procedure Room. 10:56:18 Patient transfered to [facility] with Bed. 10:56:20 Procedure ended. 10:56:20 Full Disclosure recording stopped 10:56:32 End room use (Document Last) Intervention Summary Intervention Notes Time ActionType Lesion and Equipment Action# Pressure Duration Attributes Used 10:50:45 Place stent Dist RCA BLANE OTW 3.0 1 14 00:23 x 26 stent ([id number]) 10:51:27 Reinflate Dist RCA BLANE OTW 3.0 2 12 00:33 stent x 26 stent balloon ([id number]) 10:52:38 Reinflate Dist RCA BLANE OTW 3.0 3 12 00:23 stent x 26 stent balloon ([id number]) Device Usage Item Name Manufacture Quantity Catalog Hospital Part Current Mini mal Lot# / Number Charge Number Stock Stock Serial# Code ACIST Syringe Acist 1 17389 230388 317902 [id number] 20 (47814) Medical Systems Inc Bag Decanter Microtek 1 2001S 446580 37870 770949 5 () Medical Inc. Medline Cath Medline 1 [id number] 068849 02234 781431 5 Pack ([id number]) DIAGNOSTIC St Jh 1 664023 302698 057014 857710 30 WIRE .035 260cm J wire (429929) ACIST Hand Acist 1 74846 659992 948728 977808 5 Control Medical (64976) Systems Inc ACIST Acist 1 41106 591349 425186 659762 5 Manifold Medical (10714) Systems Inc DIAGNOSTIC Cardinal 1 UB6471 812500 75120 225956 30 Multipack 5Fr Health catheter set ([id number]) Tegaderm 4 x 3M 1 1626W 397333 577077 600571 5 4 (1626W) SHEATH 5FR Terumo 1 VAT918 893741 718211 147362 5 [place] (IWG073) MULTIPACK JL Cardinal 1 711651 5 4.0 5Fr Health catheter MULTIPACK Cardinal 1 451499 5 3DRC 5Fr Health catheter MULTIPACK Cardinal 1 670770 5 Pigtail 5 Fr Health catheter WHISPER 300cm [place] 1 [id number] 927406 813330 629018 5 guide wire Vascular ([id number]) SHEATH 6FR Terumo 1 MZC839 820150 790773 859944 40 [place] (TRL948) INFLATOR [facility] 1 EA5349 856041 249159 469358 15 [facility] Medical BasixCompak (DD5309) GUIDE 6FR HS Medtronic 1 [id number] 969404 50045 667414 1 I SH catheter ([id number]) GUIDE 6FR HS Medtronic 1 [id number] 317537 62546 178133 1 II SH catheter ([id number]) BLANE OTW 3.0 Medtronic 1 [id number] 384345 0495343 959561 5 [id number] x 26 stent ([id number]) EXOSEAL 6Fr Cardinal 1 EX600 862385 827019 716391 10 (EX600) Health Signature Audit [place] Stage Time Signature Unsigned Intra-Procedure 05/06/2018 Marcia Castaneda 10:59:56 AM RT(R) Signatures Monitor : Marcia Castaneda Signature : RT Date : Time : [address] [address]
[2018-05-05 13:38] LABS: BASOPHILS 0.4 % (0-2); EOSINOPHILS 2.7 % (0-7); HEMATOCRIT 33.3 % (42.0-54.0); HEMOGLOBIN 11.4 g/dL (13.5-17.5); IMMATURE GRANULOCYTES 0.7 % (0-5); LYMPHOCYTES 16.7 % (15-50); MCH 29.2 pg (26.0-34.0); MCHC 34.2 g/dL (31.0-37.0); MCV 85.2 fL (80.0-100.0); MEAN PLATELET VOLUME 9.5 fL (7.4-10.4); MONOCYTES 9.4 % (2-11); NEUTROPHILS 70.1 % (40-80); PLATELET COUNT 206 10x3/uL (130-400); RBC 3.91 10x6/uL (4.20-6.10); RDW 13.2 % (11.5-14.5)
[2018-05-05 13:52] LABS: APTT 24.3 SECONDS (22.8-39.4); INR 1.12 (0.85-1.17); PROTIME 13.9 SECONDS (11.6-15.0)
[2018-05-05 14:36] LABS: ALBUMIN 3.6 g/dL (3.4-5.0); ALKALINE PHOSPHATASE 47 U/L (46-116); ALT (SGPT) 27 U/L (10-68); BILIRUBIN - TOTAL 0.28 mg/dL (0.2-1.3); CALC OSMOLALITY 295 mosm/kg (275-300); CALCIUM 8.5 mg/dL (8.5-10.1); CARBON DIOXIDE 21.6 mmol/L (21.0-32.0); CHLORIDE - SERUM 99 mmol/L (98-107); CKMB 2.8 U/L (0.0-3.6); CREATINE KINASE 75 UL (21-232); CREATININE - SERUM 1.4 mg/dL (0.6-1.3); POTASSIUM - SERUM 5.4 mmol/L (3.5-5.1); PRO BNP 246 pg/mL (0-125); PROTEIN - SERUM 6.9 g/dL (6.4-8.2); SODIUM 132 mmol/L (136-145); TROPONIN-I < 0.017 ng/mL (0.000-0.060); UREA NITROGEN 47 mg/dL (7-18); eGFR NON AFRICAN AMERICAN 55 mL/min (90-120)
[2018-05-05 14:45] LABS: GLUCOSE 449 mg/dL (74-106)
--- NOTE | 2018-05-05 18:29 | NUR ---
PT ARRIVED FROM ER A&O SITTING UP IN BED RESTING QUIETLY. PT STATES HE DIDNT REALLY GET TO EAT SO I ORDERED HIM A DINNER TRAY. QUICK START INITIATED HOWEVER MEDICATION REC. NOT COMPLETE PT AND HIS ARE BOTH UNSURE ABOUT HIS MEDICATIONS. AT BEDSIDE STATES SHE CAN GET THEM TONIGHT AND BRING THE LIST OF MEDICATIONS FOR US. ORIENTED PT TO ROOM AND FLOOR AND SITUATION. TELEMETRY APPLIED ORDERED. WILL PASS ON IN SHIFT REPORT. VSS. NO CURRENT NEEDS.
[2018-05-05 20:10] LABS: CKMB 2.2 U/L (0.0-3.6); CREATINE KINASE 63 UL (21-232); TROPONIN-I 0.016 ng/mL (0.000-0.060)
[2018-05-05] MEDS ORDERED: ASPIRIN325 MG PO (20:15)
[2018-05-05] MEDS ORDERED: TOUJEO SOL300 UNIT/1 SC (20:16)
--- NOTE | 2018-05-05 21:15 | NUR ---
[id number] 16 UNITS OF HUMALOG, PT DENIES ANY NEEDS, BED IS LOW, SRX2, CALL LIGHT IN REACH, WILL CONTINUE PLAN OF CARE
--- NOTE | 2018-05-05 23:06 | NUR ---
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 PT DENIED ILYA DISCOMFORT. SR PER CM HR 74. VSS. O2 2LNC. IV TO L HAND SL. LUNGS DIMINISHED IN BASES BILAT. VENOUS STASIS NOTED TO BOTTOM OF L FOOT 1CM IN DIAMETER. HEALING WOUND TO POSTERIOR R BIG TOE 2CM X 0.25 CM. SR UP X2, CALL LIGHT WITHIN REACH.
[2018-05-06] VITALS (7 sets, daily range): BP systolic 120–140; BP diastolic 51–89; Ht 182.9 cm; Wt 137.7 kg
[2018-05-06 02:21] LABS: CKMB 2.1 U/L (0.0-3.6); CREATINE KINASE 72 UL (21-232); TROPONIN-I 0.024 ng/mL (0.000-0.060)
[2018-05-06 08:24] LABS: CKMB 1.9 U/L (0.0-3.6); CREATINE KINASE 77 UL (21-232)
[2018-05-06 08:26] LABS: TROPONIN-I < 0.017 ng/mL (0.000-0.060)
[2018-05-06 08:27] LABS: BASOPHILS 0.3 % (0-2); EOSINOPHILS 5.7 % (0-7); HEMATOCRIT 34.5 % (42.0-54.0); HEMOGLOBIN 11.6 g/dL (13.5-17.5); IMMATURE GRANULOCYTES 0.4 % (0-5); LYMPHOCYTES 28.7 % (15-50); MCH 29.1 pg (26.0-34.0); MCHC 33.6 g/dL (31.0-37.0); MCV 86.5 fL (80.0-100.0); MEAN PLATELET VOLUME 9.6 fL (7.4-10.4); NEUTROPHILS 54.9 % (40-80); PLATELET COUNT 207 10x3/uL (130-400); RBC 3.99 10x6/uL (4.20-6.10); RDW 13.4 % (11.5-14.5); WBC 6.8 10x3/uL (4.8-10.8)
[2018-05-06 08:38] LABS: ANION GAP 17.8 mmol/L (8-16); CALCIUM 8.7 mg/dL (8.5-10.1); CARBON DIOXIDE 23.8 mmol/L (21.0-32.0); CREATININE - SERUM 1.2 mg/dL (0.6-1.3); POTASSIUM - SERUM 4.6 mmol/L (3.5-5.1)
--- NOTE | 2018-05-06 09:04 | NUR ---
PT GOING FOR HEART CATH LATER THIS MORNING AND VERBALIZED UNDERSTANDING. CONSENTS OBTAINED AND PLACED IN CHART. PT IS DOING HIS PREPPING CLEANSING AND AT BEDSIDE FOR ASSISTANCE. PLAVIX AND ASA GIVEN WITH SIP OF WATER. PT WAITING FOR DOT NET DEVELOPER. NO CURRENT NEEDS.
--- NOTE | 2018-05-06 10:00 | NUR ---
PRE-OP MEDICATIONS GIVEN FOR SEAT COVER CUTTER ORDERED. CATH TEAM HERE NOW TO TAKE PT NO FURTHER NEEDS.
--- NOTE | 2018-05-06 11:33 | NUR ---
PT BACK FROM COMBAT SYSTEMS OFFICER A&O LYING FLAT. PT IS TO LAY FLAT X4 HOURS AND VERBALIZED UNDERSTANDING. NEW DRSG TO KEN CDI NO S/S OF BLEEDING OR HEMATOMA NOTED. TELEMETRY BACK IN PLACE RUNNING SR @72BPM. VSS AND BEING MONITERED PER POST PROCEDURE PROTOCOL. PT DENIES ANY CURRENT PAIN OR NEEDS AT THIS TIME. WILL CTM.
--- NOTE | 2018-05-06 12:44 | NUR ---
KEN STREETG REMAINS CDI NO S/S OF BLEEDING OR HEMATOMA NOTED. VSS AND STILL BEING MONITERED PER POST PROCEDURE POLICY. PT DENIES ANY CURRENT PAIN OR NEEDS AT THIS TIME. CL IN REACH, BED IN LOWEST, SIDE RAILS X2. WILL CTM.
--- NOTE | 2018-05-06 13:30 | NUR ---
PT REMAINS LYING FLAT IN BED. RR NONLABORED ON RA. VSS. R.GROIN DRSG REMAINS CDI NO S/S OF BLEEDING OR HEMATOMA NOTED. PERIPHERAL PULSES INTACT. PT EATING DINNER WITH ASSISTANCE OF AT BEDSIDE. CL IN REACH, BED IN LOWEST, SIDE RAILS X2. WILL CTM.
--- NOTE | 2018-05-06 15:03 | NUR ---
PT 4 HR LAY COMPLETED. R.GROIN DSRG REMAINS CDI. NO S/S OF BLEEDING OR HEMATOMA NOTED. VSS THROUGHOUT THE ENTIRE MONITERING. PT NOW SITTING UP NO CURRENT NEEDS. WILL CTM.
--- NOTE | 2018-05-06 17:45 | NUR ---
PT ATE ALL OF HIS DINNER AND IS SITTING UP IN BED RESTING QUIETLY WITH MOTHER AT BEDSIDE. PT STATES HE IS FEELING MUCH BETTER OVERALL AND HOPING TO BE DISCHARGED TOMORROW MORNING. CL IN REACH, BED IN LOWEST, SIDE RAILS X2. NO CURRENT NEEDS. WILL CTM.
--- NOTE | 2018-05-06 19:30 | NUR ---
RECEIVED REPORT, WILL ASSUME CARE OF PT, SITTING UP IN BED, DENIES ANY NEEDS, SL-IV, BED IS LOW, SRX2, CALL LIGHT IN REACH, WILL CONTINUE PLAN OF CARE
--- NOTE | 2018-05-06 21:00 | NUR ---
[facility] OF [facility]UMALOG
[2018-05-07 00:29] VITALS: BP 116/69
[2018-05-07 06:06] LABS: BASOPHILS 0.3 % (0-2); EOSINOPHILS 3.9 % (0-7); HEMATOCRIT 36.2 % (42.0-54.0); IMMATURE GRANULOCYTES 0.4 % (0-5); LYMPHOCYTES 22.3 % (15-50); MCH 29.1 pg (26.0-34.0); MCHC 33.1 g/dL (31.0-37.0); MCV 87.7 fL (80.0-100.0); MEAN PLATELET VOLUME 9.2 fL (7.4-10.4); MONOCYTES 11.7 % (2-11); NEUTROPHILS 61.4 % (40-80); PLATELET COUNT 208 10x3/uL (130-400); RBC 4.13 10x6/uL (4.20-6.10); RDW 13.4 % (11.5-14.5); WBC 6.9 10x3/uL (4.8-10.8)
[2018-05-07 06:22] VITALS: BP 153/61
[2018-05-07 06:28] LABS: ALBUMIN 3.5 g/dL (3.4-5.0); ANION GAP 13.3 mmol/L (8-16); BILIRUBIN - TOTAL 0.4 mg/dL (0.2-1.3); CALCIUM 8.5 mg/dL (8.5-10.1); CARBON DIOXIDE 28.9 mmol/L (21.0-32.0); CREATININE - SERUM 1.2 mg/dL (0.6-1.3); POTASSIUM - SERUM 4.2 mmol/L (3.5-5.1); PROTEIN - SERUM 7.1 g/dL (6.4-8.2)
--- NOTE | 2018-05-07 09:22 | NUR ---
PT SITTING UP ON SIDE OF BED EATING BREAKFAST. DENIES PAIN AT THIS TIME. VITALS STABLE. TOOK MEDS WITHOUT DIFFICULTY. NO EDEMA NOTED. A/O X 4. UP AB NILTON. LLE ULCER NOTED WITH DRSG C/D/I. L HAND IV SL. 2L O2 VIA NC. NORMAL SINUS ON TELE. NO FURTHER CONCERNS/COMPLAINTS AT THIS TIME. BED LWOERED AND LOCKED. CL IN REACH. WILL CPOC.
[2018-05-07 09:52] VITALS: BP 123/81
--- NOTE | 2018-05-07 11:20 | NUR ---
CONFIRMED WITH MATTHEW KAN, THAT PT TO BE ON 325MG ASA DAILY.
--- NOTE | 2018-05-07 12:00 | NUR ---
DC GIVEN TO PT. IV REMOVED. TIP INTACT,
--- NOTE | 2018-05-07 12:00 | NUR ---
PT DC HOME VIA WHEELCHAIR PER PERSONAL CAR WITH MOM.
--- NOTE | 2018-05-07 12:29 | MORECARE ---
CASE MANAGEMENT DISCHARGE SUMMARY PATIENT: POPPY ARORA UNIT: [id number] ADM DATE: 05/05/18 AGE: 62 : 57 SEX: M ROOM/BED: D.2111 AUTHOR: ELBA DELVALLE PHYSICIAN: REFERRING PHYSICIAN: MARISA BANEGAS MD DATE OF SERVICE: 05/07/18 Discharge Plan Patient Name: POPPY ARORA [facility] 1955 Planned Disposition: Home Anticipated Discharge Date: 05/07/18 Discharge Date: 05/07/2018 Expected LOS: 2 Initial Reviewer: [email or web address] Initial Review Date: 05/07/2018 Generated: 05/07/18 1:29 pm Coverage Notice Reviewer: [email or web address] Malcolm Camilo Notice Issued Date-Time: 05/06/2018 16:04 Notice Type: Medicare Outpatient Observation Notice Notice Delivered To: Patient Relationship to Patient: Self Farm Operations Technical Director Name: Delivery Method: HAND - Hand Delivered Che Days: Prior Verbal Notification: Recipient Understood Notice: Yes Recipient Signature: Yes Med Rec Note Co-signed by Attending: Coverage Notice Comment: [facility]YTON DISCUSSED WITH PATIENT AND HIS MOTHER, NICK, AFTER VERBAL CONSENT OBTAINED. Patient Name: POPPY ARORA Page [id number] at 1229 All edits/amendments must be made on the electronic document DICTATION DATE: 05/07/18 1229 LOUNGE CAR ATTENDANT: LENO 05/07/18 1229 RPT#: [id number] DC DATE:05/07/18 STATUS: DIS IN [address] [place] [address] END OF REPORT
== END 2018-05-07 12:11 | disposition home or self-care (01) ==
LOC: D.ER 12:28 → D.EDHOLD 16:04 → OBSVTIME 16:04 → D.M2 16:04
PROVIDERS: Emergency Medicine; Family Medicine; Internal Medicine Interventional Cardiology; ADMIT Internal Medicine Nephrology; ATTEND Internal Medicine Nephrology
DX: I25.10 Atherosclerotic heart disease of native coronary artery without angina pectoris (principal); H53.9 Unspecified visual disturbance; R42 Dizziness and giddiness; I10 Essential (primary) hypertension; E11.51 Type 2 diabetes mellitus with diabetic peripheral angiopathy without gangrene; E11.65 Type 2 diabetes mellitus with hyperglycemia
CPT/HCPCS: 93458; 36222; C9600

== ENCOUNTER → 2019-02-19 13:43 | Outpatient (CLI) | payer MEDICARE, OTHER ==
[2018-05-06 11:05] VITALS: BMI 41.6
[~2019-02-19 13:43] MED LIST changes: +ASPIRIN325 MG PO
--- NOTE | 2019-02-27 11:25 | EC ---
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 Ao 122 cm/sec RVOT 95 cm/sec RA cm/sec PA 138 cm/sec AV Gradient Peak 6.00 mmHg AV Mean 2.93 mmHg AV Area 2.5 cm MV Gradient Peak 4.02 mmHg MV Mean 1.25 mmHg MV Area cm COMMENTS: Sales Negotiator: 2 ALMAZ SÁNCHEZ Air And Water Filler: 3 Dr. Palafox TAPE# PACS Pericardial Effusion N DATE OF SERVICE: Adequate 2D, color flow imaging, spectral Doppler, and M-Mode Marked LVH. LV internal dimension is normal. Wall motion is normal. EF is greater than or equal to 55%. Aortic valve is tricuspid. No evidence of stenosis on Doppler interrogation. Left atrium is dilated at 4.7 cm. Mitral valve shows no prolapse. Trivial MR. Right-sided chambers are grossly normal. Trivial TR. ECHOCARDIOGRAM REPORT [id number] POPPY ARORA TRANSINT:[id number] Voice Confirmation ID: [id number] DOCUMENT ID: [id number] HILTON PERALTA MD at 1125 CC: [id number] DICTATION DATE: 02/20/19 1231 CELL STRIPPER: 02/20/19 1459 DEP CLI 02/19/19 [place] [id number] [place] [id number]
== END | disposition home or self-care (01) ==
LOC: D.HCCECHO 13:43
PROVIDERS: ATTEND Internal Medicine Interventional Cardiology
DX: I10 Essential (primary) hypertension (principal)